=== PATIENT | female | born 1975 | race Caucasian/White ===

== ENCOUNTER → 2019-11-01 | Outpatient (CLI) | payer BC ==
[~2019-11-01] MED LIST: BUPR75; IBUP800; Percocet 5-3251 EACH PO; SERT20L
[2019-11-01 14:49] LABS: BASOPHILS ABSOLUTE AUTO 0.09 K/mm3 (0.00-0.23); BASOPHILS PERCENT AUTO 1 % (0-2); EOSINOPHILS ABSOLUTE AUTO 0.27 K/mm3 (0.00-0.68); EOSINOPHILS PERCENT AUTO 4 % (0-6); Hematocrit 39.9 % (33.0-51.0); Hemoglobin 13.4 g/dL (11.5-16.0); IMMATURE GRAN ABSOLUTE AUTO 0.02 K/mm3 (0.00-0.10); IMMATURE GRAN PERCENT AUTO 0 % (0-1); LYMPHOCYTES ABSOLUTE AUTO 2.31 K/mm3 (0.84-5.20); LYMPHOCYTES PERCENT AUTO 33 % (21-46); MONOCYTES ABSOLUTE AUTO 0.54 K/mm3 (0.16-1.47); MONOCYTES PERCENT AUTO 8 % (4-13); Mean Corpuscular HGB 28.2 pg (26.0-34.0); Mean Corpuscular HGB Conc 33.6 g/dL (31.5-36.5); Mean Corpuscular Volume 84 fL (80-100); NEUTROPHILS ABSOLUTE AUTO 3.76 K/mm3 (1.96-9.15); NEUTROPHILS PERCENT AUTO 54 % (41-73); Platelet Count 307 K/mm3 (150-400); RDW Coefficient Variation 14.7 % (11.7-14.2); RDW Standard Deviation 44.9 fL (35.1-46.3); Red Blood Cell Count 4.76 M/mm3 (3.80-5.20); White Blood Cell Count 6.99 K/mm3 (4.00-11.30)
[2019-11-01 15:01] LABS: Alanine Aminotransfer (ALT/SGP 57 U/L (12-78); Albumin/Globulin Ratio 1.1 (0.8-1.8); Alk Phos 91 U/L (40-126); Anion Gap 11 mmol/L (6-16); Aspartate Aminotrans (AST/SGOT 46 U/L (12-37); Blood Urea Nitrogen 21 mg/dL (8-24); Bun/Creatinine Ratio 26.3 (12.0-20.0); CO2, Blood 28 mmol/L (21-32); Chloride, Blood 105 mmol/L (98-108); Globulin, Blood 3.8 g/dL (2.2-4.0); Glomerular Filtration Rate >60 (60-); Glucose, Blood 88 mg/dL (70-99); Sodium, Blood 144 mmol/L (136-145); Total Protein, Blood 7.8 g/dL (6.4-8.2)
== END | disposition home or self-care (01) ==
LOC: LAB SHORT 14:45 → LAB EV 14:45
PROVIDERS: Physician Assistant Medical
DX: R10.12 Left upper quadrant pain (principal)
CPT/HCPCS: 80053; 83690; 85025

== ENCOUNTER 2020-01-03 06:16 | Day surgery (SDC) | payer BC ==
[~2020-01-03 06:16] MED LIST changes: +ESCI10 PO
[2020-01-03] MEDS ORDERED: ATOR20 PO (06:17)
[2020-01-03] MEDS ORDERED: OMEP20ER PO (06:18)
--- NOTE | 2020-01-03 10:11 | NUR ---
1000- PT RESTING IN STEP, WOKE UP AND STATED SHE FELT LIKE SHE WAS HAVING A GALLBLADDER ATTACK BUT DECLINED ANY PAIN MEDICATION FOR IT AND THEN RETURNED TO RESTING QUIELTY. DAIRY SPECIALIST CAME FOR MRI QUESTIONAIRE THAT WAS FILLED OUT, WILL COME BACK AT APPROX 1030 FOR MRCP. PT REMAINED NPO.
--- NOTE | 2020-01-03 10:33 | NUR ---
GAVE PT 25MCG FENTANYL FOR PAIN 11/02. TECH HER FOR PT MRCP.
--- NOTE | 2020-01-03 11:15 | NUR ---
PT RETURNED FROM [facility], GAVE FENTANYL PER ORDER. 4/10 PAIN, HIGH EPIGASTRIC. PT OTHERWISE RESTS QUIETLY.
--- NOTE | 2020-01-03 11:49 | NUR ---
1140- PT STATES PAIN IS GONE AND READY FOR DC HOME. CALLED DR YOUNG, TOLD TO TELL PT THAT MRCP IS CLEAR AND CAN BE DISCHARGED, DIET TOLERATED. Discharge instructions reviewed with patient. Patient verbalizes understanding. Copy given to patient to take home. PT DENIES NEED FOR ANYTHING TO DRINK AT THIS TIME, KNOWS TO GO EASY AND SLOW ON DIET. RIDE HOME HERE.
--- NOTE | 2020-01-03 12:04 | NUR ---
1200- PT DRESSED, DRG C/D/I TO ABDOMEN, SOFT AND NONTENDER, NO PAIN. Discharged via wheelchair to private car for ride home.
== END 2020-01-03 22:48 | disposition home or self-care (01) ==
LOC: ORD 06:16 → ORSCMMR 06:16 → ORD 07:30 → ORSCMMR 07:30
PROVIDERS: Surgery
PROC: BF131ZZ Fluoroscopy of Gallbladder and Bile Ducts using Low Osmolar Contrast (ICD-10-PCS; principal; 2020-01-03 07:30)
PROC: 0FT44ZZ Resection of Gallbladder, Percutaneous Endoscopic Approach (ICD-10-PCS; principal; 2020-01-03 07:30)
DX: K80.20 Calculus of gallbladder without cholecystitis without obstruction (principal); F32.9 Major depressive disorder, single episode, unspecified; Z79.899 Other long term (current) drug therapy; E78.5 Hyperlipidemia, unspecified; E66.01 Morbid (severe) obesity due to excess calories
CPT/HCPCS: 74181; 74300; 88304; C1894; J0461; J0690; J1100; J1610; J2250; J2370; J2405; J2704; J2710; J2765; J3010; J7120

== ENCOUNTER → 2021-06-28 | Outpatient (CLI) | payer BC ==
[~2021-06-28] MED LIST changes: +ATOR20 PO; +OMEP20ER PO
[2021-06-28 17:39] LABS: BASOPHILS ABSOLUTE AUTO 0.07 K/mm3 (0.00-0.23); BASOPHILS PERCENT AUTO 1 % (0-2); EOSINOPHILS ABSOLUTE AUTO 0.23 K/mm3 (0.00-0.68); EOSINOPHILS PERCENT AUTO 4 % (0-6); Hemoglobin 13.3 g/dL (11.5-16.0); IMMATURE GRAN ABSOLUTE AUTO 0.01 K/mm3 (0.00-0.10); IMMATURE GRAN PERCENT AUTO 0 % (0-1); LYMPHOCYTES ABSOLUTE AUTO 2.24 K/mm3 (0.84-5.20); LYMPHOCYTES PERCENT AUTO 38 % (21-46); MONOCYTES ABSOLUTE AUTO 0.51 K/mm3 (0.16-1.47); MONOCYTES PERCENT AUTO 9 % (4-13); Mean Corpuscular HGB Conc 34.1 g/dL (31.5-36.5); Mean Corpuscular Volume 85 fL (80-100); Mean Platelet Volume 9.3 fL (9.1-12.4); NEUTROPHILS ABSOLUTE AUTO 2.86 K/mm3 (1.96-9.15); NEUTROPHILS PERCENT AUTO 48 % (41-73); Platelet Count 300 K/mm3 (150-400); RDW Coefficient Variation 13.1 % (11.7-14.2); RDW Standard Deviation 40.2 fL (35.1-46.3); Red Blood Cell Count 4.59 M/mm3 (3.80-5.20); White Blood Cell Count 5.92 K/mm3 (4.00-11.30)
[2021-06-28 17:44] LABS: Anion Gap 12 mmol/L (6-16); Blood Urea Nitrogen 22 mg/dL (8-24); Bun/Creatinine Ratio 28.9 (12.0-20.0); CO2, Blood 28 mmol/L (21-32); Calcium, Blood 8.7 mg/dL (8.5-10.1); Chloride, Blood 102 mmol/L (98-108); Creatinine, Blood 0.76 mg/dL (0.40-1.00); Glomerular Filtration Rate >60 (60-); Glucose, Blood 89 mg/dL (70-99); Potassium, Blood 4.2 mmol/L (3.5-5.5); Sodium, Blood 142 mmol/L (136-145)
== END ==
LOC: LAB 17:34 → LAB SHORT 17:34
PROVIDERS: Physician Assistant Surgical
DX: R42 Dizziness and giddiness (principal)
CPT/HCPCS: 80048; 85025

== ENCOUNTER → 2025-02-18 | Outpatient (CLI) | payer BC | END | disposition home or self-care (01) | LOC: LAB 15:45 → LAB SHORT 15:45 | PROVIDERS: Physician Assistant | DX: Z01.419 Encounter for gynecological examination (general) (routine) without abnormal findings (principal) | CPT/HCPCS: 87624; G0145 ==

== ENCOUNTER 2025-04-25 09:15 | Day surgery (SDC) | payer BC ==
[~2025-04-25] VITALS: Ht 162.6 cm; Wt 61.0 kg
[2025-04-25] MEDS ORDERED: BUPROPION XL150 M1 (09:34)
[2025-04-25] MEDS ORDERED: ESTRADIOL (ONC1 EA30 (09:35)
[2025-04-25] MEDS ORDERED: BUSP5 (09:36)
[2025-04-25 12:19] VITALS: BP 114/55
== END 2025-04-25 11:55 | disposition home or self-care (01) ==
LOC: ORSCSDS 09:15 → ORD 12:30 → ORSCSDS 13:00
PROVIDERS: Family Medicine
PROC: 0DJD8ZZ Inspection of Lower Intestinal Tract, Via Natural or Artificial Opening Endoscopic (ICD-10-PCS; principal; 2025-04-25 10:15)
DX: Z12.11 Encounter for screening for malignant neoplasm of colon (principal); K64.4 Residual hemorrhoidal skin tags; K64.8 Other hemorrhoids; Z79.899 Other long term (current) drug therapy; E78.5 Hyperlipidemia, unspecified; F41.8 Other specified anxiety disorders
CPT/HCPCS: J2704; J7120